=== PATIENT | female | born 1955 | race Caucasian/White ===

== ENCOUNTER 2019-10-12 08:45 | Emergency (ER) | payer BC, OTHER ==
--- OUTSIDE RECORDS SUMMARY | 2019-10-12 08:50 | XMS REPORT | Continuity of Care Document ---
:1955 External Reference #:[id number] Author Name KELVIN Foster (transmitted by agent of provider Joanne Mascorro) Address [address] [place] [address] Care Team Providers Name Role Phone Marcus Toussaint MD - Orthopaedic Care Team Information Certified Home Health Aide [phone] Surgery Velma Sheets PA - Physician Full Stack Web Developer Care Team Information Certified Home Health Aide Problems Active Problems Provider Date Anxiety state Onset: 09/23/2018 Mild depression Onset: 09/23/2018 Insomnia Onset: 09/23/2018 Neck pain Onset: 09/23/2018 Stress Onset: 09/23/2018 Onset: 09/23/2018 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 Gastroesophageal reflux disease Onset: 11/03/2013 Gynecologic examination Onset: 11/03/2013 Malaise and fatigue KELVIN Foster Onset: 12/24/2018 Allergic rhinitis KELVIN Foster Onset: 03/27/2019 Seasonal allergic conjunctivitis KELVIN Foster Onset: 03/27/2019 Social History Type Date Description Comments Sex Unknown ETOH Use Occasionally consumes alcohol Tobacco Use Start: Unknown End: Patient is a former smoker Unknown Recreational Drug Use Never Used Drugs Smoking Status Reviewed: 04/23/19 Patient is a former smoker Exercise Type/Frequency Exercises regularly Allergies, Adverse Reactions, Alerts Active Allergies Reaction Severity Comments Date Cephalexin Free Text 11/01/2018 Amoxicillin Free Text 11/01/2018 Sulfa Antibiotics Free Text 11/01/2018 Ciprofloxacin Free Text 11/01/2018 Medications Active Medications SIG Qnty Indications Ordering Date Provider Doxycycline one twice a day 20tabs L03.90 Pablo 08/27/2019 Mark Hsu MD 100mg Tablets Azelastine HCL one drop each eye 6ml J30.89 Pablo 02/07/2019 (Ophthalmic) twice a day MD Shadi 0.05% Solution Bupropion take 1 tablet by 180tabs F43.21 Pablo 08/26/2018 Hydrochloride ER (SR) mouth every day MD Shadi for 1 week then 100mg Tablets ER 12HR increase to 1 tablet by mouth every 12 hours Trazodone HCL take 1 tablet by 90tabs G47.00 Pablo 07/31/2017 50mg mouth every night MD Shadi Tablets at bedtime Escitalopram Oxalate take 1 tablet by 90tabs F41.9 Pablo 07/17/2017 mouth every day MD Shadi 10mg Tablets Azelastine HCL 2 sprays each 30units J30.9 Pablo 04/20/2017 (Nasal) nostril once or MD Shadi 0.1% Solution twice a day for allergies Gabapentin take one capsule 90caps Pablo 06/28/2016 300mg by mouth five MD Shadi Capsules times a day History Medications Tessalon Perles 2 perles three 30caps R05 Pablo Hsu, 04/23/2019 - times a day as 08/27/2019 100mg Capsules needed for cough Immunizations CPT Code Status Date Vaccine Lot # [id number] Given 09/10/2018 Tdap - Tetanus/Diptheria/Acellular Pertussis 34837 Given 08/11/2014 Influenza Virus 3Yrs & Over [id number] Given 11/03/2013 Influenza Virus 3Yrs & Over Vital Signs Date Vital Result Comment 08/27/2019 9:03am Weight 181.56 lb BP Systolic Sitting 122 mmHg BP Diastolic Sitting 80 mmHg 04/23/2019 2:14pm Height 108 inches 9'0" Weight 176.00 lb BP Systolic Sitting 108 mmHg BP Diastolic Sitting 50 mmHg BMI (Body Mass Index) 10.6 kg/m2 Results Description No Information Available Procedures Date Code Description Status 09/02/2018 [id number] Mammogram Completed 04/30/2012 [id number] Colonoscopy Completed Medical Devices Description No Information Available Encounters Type Date Location Provider Dx Diagnosis Office Visit 04/23/2019 [facility] KELVIN Foster J06.9 Acute upper 2:15p respiratory infection, unspecified J30.89 Other allergic rhinitis J01.90 Acute sinusitis, unspecified R05 Cough Office Visit 03/27/2019 8:15a [facility] KELVIN Foster J01.90 Acute sinusitis, Care unspecified H10.45 Other chronic allergic conjunctivitis J30.89 Other allergic rhinitis F43.23 Adjustment disorder with mixed anxiety and depressed mood M54.2 Cervicalgia Assessments Date Code Description Provider 08/27/2019 L03.90 Cellulitis, unspecified KELVIN Foster 08/27/2019 K21.9 Gastro-esophageal reflux disease without esophagitis KELVIN Foster 08/27/2019 B35.4 Tinea corporis KELVIN Foster 04/23/2019 J06.9 Acute upper respiratory infection, unspecified KELVIN Foster 04/23/2019 J30.89 Other allergic rhinitis KELVIN Foster 04/23/2019 J01.90 Acute sinusitis, unspecified KELVIN Foster 04/23/2019 R05 Cough KELVIN Foster 03/27/2019 J01.90 Acute sinusitis, unspecified KELVIN Foster 03/27/2019 H10.45 Other chronic allergic conjunctivitis KELVIN Foster 03/27/2019 J30.89 Other allergic rhinitis KELVIN Foster 03/27/2019 F43.23 Adjustment disorder with mixed anxiety and depressed KELVIN Foster mood 03/27/2019 M54.2 Cervicalgia KELVIN Foster Plan of Treatment Future Appointment(s):11/25/2019 10:00 am - KELVIN Foster at [facility] - Velma Sheets PAL03.90 Cellulitis, unspecifiedNew Medication:Doxycycline Monohydrate 100 mg - one twice a dayK21.9 Gastro-esophageal reflux disease without bsaxxqstbivC69.4 Tinea corporis Functional Status Description No Information Available Mental Status Description No Information Available Referrals Description No Information Available
[2019-10-12 08:57] VITALS: BP 124/65
--- NOTE | 2019-10-12 09:05 | UC ---
Respiratory Complaint HPI - HPI Summary HPI Summary: 64 year old female presents with complaint of cough, sinus congestion and pain, body aches, some slight wheezing at times. She was nauseated upon awakening this morning, no vomiting, some loose bm's. Denies fever nor chills. States she does get sinus infections often. Tried otc symptomatic treatment without relief of sx. - History of Current Complaint Chief Complaint: UCGeneralIllness Stated Complaint: CHEST CONGESTION, COUGH Time Seen by Provider: 10/12/19 09:03 Onset/Duration: Gradual Onset - 5 days Pain Intensity: 0 Associated Signs And Symptoms: Positive: Wheezing - at times, Nasal Congestion, Sinus Discomfort. Negative: Dyspnea, Fever, Chills, Pleuritic Chest Pain - Allergies/Home Medications Allergies/Adverse Reactions: Allergies Allergy/AdvReac Type Severity Reaction Status Date / Time amoxicillin [From Augmentin] Allergy Vomiting Verified 10/12/19 08:52 ciprofloxacin Allergy Hives Verified 10/12/19 08:52 clavulanic acid Allergy Vomiting Verified 10/12/19 08:52 [From Augmentin] Sulfa (Sulfonamide Allergy Hives Verified 10/12/19 08:52 Antibiotics) Home Medications: Home Medications Phenylephrine/Dm/Acetaminop/GG [Mucinex Svda-Ezh-Sdashuqktm Lq] 1 dose PO ONCE 10/12/19 [History Confirmed 10/12/19] buPROPion TAB* [Wellbutrin TAB*] 75 mg PO BID 10/12/19 [History Confirmed ] traZODone TAB* [Desyrel TAB*] 50 mg PO BEDTIME 10/12/19 [History Confirmed 10/12] PMH/Surg Hx/FS Hx/Imm Hx Previously Healthy: Yes - Surgical History Surgical History: Yes Surgery Procedure, Year, and Place: cholecystectomy. cesarian - Family History Family History: non-contributory - Social History Alcohol Use: None Substance Use Type: None Smoking Status (MU): Former Smoker When Did the Patient Quit Smoking/Using Tobacco: 2013 - Immunization History Most Recent Influenza Vaccination: Oct Review of Systems All Other Systems Reviewed And Are Negative: Yes Constitutional: Positive: Fatigue. Negative: Fever, Chills Skin: Negative: Rash Eyes: Positive: Negative ENT: Positive: Nasal Discharge, Sinus Congestion, Sinus Pain/Tenderness Respiratory: Positive: Cough. Negative: Shortness Of Breath Cardiovascular: Negative: Palpitations, Chest Pain Gastrointestinal: Positive: Diarrhea - intermittent for the past few days, Nausea - upon awakening this morning. Negative: Abdominal Pain, Vomiting Motor: Positive: Negative Neurovascular: Positive: Negative Musculoskeletal: Positive: Negative Neurological: Positive: Negative Is Patient Immunocompromised?: No Physical Exam Triage Information Reviewed: Yes Appearance: Well-Appearing, No Pain Distress Vital Signs: Initial Vital Signs Temp 98 F 10/12/19 08:53 Pulse 85 10/12/19 08:53 Resp 14 10/12/19 08:53 BP 124/65 10/12/19 08:53 Pulse Ox 98 10/12/19 08:53 Vital Signs Reviewed: Yes Eye Exam: Normal ENT: Positive: Pharynx normal, Nasal congestion, Nasal drainage, TMs normal, Sinus tenderness - maxillary bilateral, Uvula midline Neck: Positive: Supple, Nontender, No Lymphadenopathy Respiratory: Positive: Lungs clear, Normal breath sounds, No respiratory distress. Negative: Crackles, Rhonchi, Wheezing Cardiovascular: Positive: RRR, No Murmur Abdomen Description: Positive: Soft, Other: - mild generalized tenderness. Negative: CVA Tenderness (R), CVA Tenderness (L), Distended, Guarding Musculoskeletal Exam: Normal Neurological Exam: Normal Psychological Exam: Normal Skin Exam: Normal Respiratory Course/Dx - Differential Dx/Diagnosis Differential Diagnosis/HQI/PQRI: Bronchitis Provider Diagnosis: Sinusitis Discharge ED - Sign-Out/Discharge Documenting (check all that apply): Patient Departure All imaging exams completed and their final reports reviewed: No Studies - Discharge Plan Condition: Stable Disposition: HOME Prescriptions: DOXYcycline CAP(*) [DOXYcycline 100MG CAP(*)] 100 mg PO BID 10 Days #20 cap Patient Education Materials: Sinusitis (ED) Referrals: Pablo Hsu MD [Primary Care Provider] - Additional Instructions: Take antibiotics as prescribed. If your symptoms persist or worsen, follow-up with your primary care physician. - Billing Disposition and Condition Condition: STABLE Disposition: Home
== END 2019-10-12 09:20 | disposition home or self-care (01) ==
LOC: UCCORT 08:45
DX: J32.9 Chronic sinusitis, unspecified (principal); R05 Cough; R53.83 Other fatigue; R19.7 Diarrhea, unspecified; R11.0 Nausea; Z88.0 Allergy status to penicillin; Z88.1 Allergy status to other antibiotic agents; Z88.2 Allergy status to sulfonamides; Z87.891 Personal history of nicotine dependence
CPT/HCPCS: 99212; G0463